=== PATIENT | female | born 1935 | race Caucasian/White ===

== ENCOUNTER 2018-03-26 10:21 | Outpatient (REF) | payer MEDICARE, SELFPAY ==
[2018-03-26 21:50] LABS: BUN 31 mg/dL (7-18); CREATININE 0.95 mg/dL (0.55-1.02); Calcium 9.7 mg/dL (8.5-10.1); Chloride 98 mmol/L (98-107); Estimated GFR 56.32 (mL/min/1.73m2); Glucose 122 mg/dL (70-100); Potassium 4.1 mmol/L (3.5-5.1); Sodium 138 mmol/L (136-145)
== END 2018-03-26 10:41 ==
LOC: NCHCN 10:21
PROVIDERS: PCP Nurse Practitioner Family; Visit Provider Nurse Practitioner Family
DX: E11.9 Type 2 diabetes mellitus without complications (principal); I10 Essential (primary) hypertension
CPT/HCPCS: 80048

== ENCOUNTER 2019-02-03 11:24 | Outpatient (REF) | payer MEDICARE, SELFPAY ==
--- NOTE | 2019-02-03 10:15 | SKI_PTH ---
PATIENT: Anaid Singh LOC: [facility] U#:[id number] AGE/SX: 83/F ROOM: RE02/03/[address]: Renata Corral : 1935 BED: DIS: 02/03/2019 SPEC #: [id number] RECD: 02/04/19 12:28 STATUS: PÉREZ REMamta #: [id number] VINNIE: 02/03/19 10:[address]: Renata De León DEPT: Surgical Specimen RECD BY: Concepcion Pratt ENTERED: 02/04/19 12:28 SP TYPE: GREGORY KEARNS DR: Rufina Martínez Tissues: 1 - SKIN BIOPSY(SHAVE/PUNCH) Procedures: SKIN LEVEL 4 Comments: [id number]
== END 2019-02-03 11:44 ==
LOC: NCHCN 11:24
PROVIDERS: PCP Nurse Practitioner Family; Visit Provider Nurse Practitioner Family
DX: C44.42 Squamous cell carcinoma of skin of scalp and neck (principal)
CPT/HCPCS: 88305

== ENCOUNTER 2019-03-22 12:54 | Outpatient (REF) | payer MEDICARE, SELFPAY ==
[2019-03-22 21:07] LABS: HCT 44.1 % (36.0-46.0); HGB 14.6 g/dL (12.0-15.5); Mean Corp. HGB Concentration 33.1 g/dL (32.0-36.0); Mean Corpuscular Hemoglobin 30.3 pg (27.0-33.0); Mean Corpuscular Volume 91.5 fL (80-95); Mean Platelet Volume 10.9 fL (8.0-11.0); Platelet Count 358 x1000/uL (130-400); RBC 4.82 m/cumm (4.00-5.20); RBC Distribution Width 13.4 % (11.7-14.6); White Blood Cell Count 10.19 k/cumm (4.4-10.8)
[2019-03-22 21:11] LABS: Anion Gap 9.9 mmol/L (3-11); BUN 28 mg/dL (7-18); CO2 30.1 mmol/L (21.0-32.0); Chloride 100 mmol/L (98-107); Estimated GFR 52.95 (mL/min/1.73m2); Glucose 93 mg/dL (74-106); Potassium 4.2 mmol/L (3.5-5.1); Sodium 140 mmol/L (136-145)
== END 2019-03-22 13:14 ==
LOC: NCHCN 12:54
PROVIDERS: PCP Internal Medicine Infectious Disease; Visit Provider Nurse Practitioner Family
DX: E11.9 Type 2 diabetes mellitus without complications (principal); I10 Essential (primary) hypertension; N18.9 Chronic kidney disease, unspecified; Z79.1 Long term (current) use of non-steroidal anti-inflammatories (NSAID)
CPT/HCPCS: 80048; 85027

== ENCOUNTER 2020-04-03 08:58 | Outpatient (REF) | payer MEDICARE, SELFPAY ==
[2020-04-03 21:40] LABS: Anion Gap 8.3 mmol/L (3-11); BUN 31 mg/dL (7-18); CO2 30.7 mmol/L (21.0-32.0); CREATININE 1.03 mg/dL (0.55-1.02); Calcium 9.2 mg/dL (8.5-10.1); Calculated LDL 174 mg/dL (<100); Chloride 100 mmol/L (98-107); Cholesterol 256 mg/dL (<200); Estimated GFR 51.05 (mL/min/1.73m2); Glucose 101 mg/dL (74-106); HDL Cholesterol 51 mg/dL (40-60); Potassium 4.1 mmol/L (3.5-5.1); Sodium 139 mmol/L (136-145); Triglyceride 157 mg/dL (<150)
[2020-04-03 21:54] LABS: Hemoglobin A1C 5.6 % (<5.7)
== END 2020-04-03 09:18 ==
LOC: NCHCN 08:58
PROVIDERS: PCP Internal Medicine Infectious Disease; Visit Provider Nurse Practitioner Family
DX: E11.9 Type 2 diabetes mellitus without complications (principal); I10 Essential (primary) hypertension; E78.5 Hyperlipidemia, unspecified
CPT/HCPCS: 80048; 80061; 83036

== ENCOUNTER 2020-09-10 13:02 | Outpatient (REF) | payer MEDICARE, SELFPAY ==
[2020-09-10 20:57] LABS: Abs Immature Grans 0.07 10^3/uL (0.0-0.06); Absolute Basophil Count 0.07 10^3/uL (0.0-0.2); Absolute Eosinophil Count 0.16 10^3/uL (0.0-0.7); Absolute Lymphocyte Count 2.39 10^3/uL (1.2-3.4); Absolute Neutrophil Count 5.22 10^3/uL (1.2-6.7); Basophils % 0.8; Eosinophils % 1.8; HCT 44.1 % (36.0-46.0); HGB 14.3 g/dL (11.2-15.7); Immature Grans % 0.8; Lymphocytes % 27.4; MCHC 32.4 % (32.0-36.0); MCV 92.6 fL (80-95); Monocytes % 9.2; Nucleated RBC 0 %; Platelet Count 299 10^3/uL (130-400); RBC 4.76 10^6/uL (3.93-5.22); RDW 12.5 % (11.7-14.6); WBC 8.71 10^3/uL (4.4-10.8)
[2020-09-10 21:16] LABS: ALT 27 U/L (14-59); AST 19 U/L (15-37); Albumin 3.8 g/dL (3.4-5.0); Alkaline Phosphatase 69 U/L (46-116); Anion Gap 8.7 mmol/L (3-11); BUN 29 mg/dL (7-18); Bilirubin, Total 0.4 mg/dL (0.2-1.0); CO2 29.3 mmol/L (21.0-32.0); CREATININE 0.9 mg/dL (0.55-1.02); Calcium 9.4 mg/dL (8.5-10.1); Chloride 104 mmol/L (98-107); Estimated GFR 59.51 (mL/min/1.73m2); Glucose 91 mg/dL (74-106); Potassium 4.2 mmol/L (3.5-5.1); Sodium 142 mmol/L (136-145); TSH 1.11 uIU/mL (0.36-3.74)
[2020-09-10 21:18] LABS: Hemoglobin A1C 5.6 % (<5.7)
== END 2020-09-10 13:03 | disposition home or self-care (01) ==
LOC: NCHCN 13:02
PROVIDERS: PCP Internal Medicine Infectious Disease; Visit Provider Nurse Practitioner Family
DX: I10 Essential (primary) hypertension (principal); E11.9 Type 2 diabetes mellitus without complications; R55 Syncope and collapse
CPT/HCPCS: 80053; 83036; 84443; 85025

== ENCOUNTER 2021-03-11 18:44 | Outpatient (REF) | payer MEDICARE, SELFPAY ==
[2021-03-11 22:27] LABS: COMMENT (LAB VIEW ONLY) 84.99 mg/dL
== END 2021-03-11 18:45 | disposition home or self-care (01) ==
LOC: NCHCN 18:44
PROVIDERS: PCP Internal Medicine Infectious Disease; Visit Provider Nurse Practitioner Family
DX: E11.9 Type 2 diabetes mellitus without complications (principal); I10 Essential (primary) hypertension; N18.9 Chronic kidney disease, unspecified
CPT/HCPCS: 82043; 82570

== ENCOUNTER 2021-09-02 18:01 | Outpatient (REF) | payer MEDICARE, SELFPAY ==
[2021-09-02 16:16] LABS: Anion Gap 7.3 mmol/L (3-11); BUN 30 mg/dL (7-18); CO2 27.7 mmol/L (21.0-32.0); CREATININE 0.9 mg/dL (0.55-1.02); Calcium 9.2 mg/dL (8.5-10.1); Chloride 108 mmol/L (98-107); Estimated GFR 59.37 (mL/min/1.73m2); Glucose 103 mg/dL (74-106); Potassium 4.9 mmol/L (3.5-5.1); Sodium 143 mmol/L (136-145)
[2021-09-02 16:20] LABS: Hemoglobin A1C 6.3 % (<5.7)
== END 2021-09-02 18:02 | disposition home or self-care (01) ==
LOC: NCHCN 18:01
PROVIDERS: PCP Internal Medicine Infectious Disease; Visit Provider Nurse Practitioner Family
DX: E11.9 Type 2 diabetes mellitus without complications (principal); N18.9 Chronic kidney disease, unspecified
CPT/HCPCS: 80048; 83036

== ENCOUNTER 2022-03-17 10:58 | Outpatient (REF) | payer MEDICARE, SELFPAY ==
[2022-03-17 15:05] LABS: HCT 42.2 % (36.0-46.0); HGB 13.7 g/dL (11.2-15.7); MCH 30.2 pg (27.0-33.0); MCHC 32.5 % (32.0-36.0); MCV 93 fL (80-95); MPV 10.7 fL (8.0-11.0); Platelet Count 290 10^3/uL (130-400); RBC 4.53 10^6/uL (3.93-5.22); RDW 13.4 % (11.7-14.6); RDW-SD 45.8 fL; WBC 8.52 10^3/uL (4.4-10.8)
[2022-03-17 15:27] LABS: Anion Gap 5.4 mmol/L (3-11); BUN 30 mg/dL (7-18); CO2 29.6 mmol/L (21.0-32.0); CREATININE 1.1 mg/dL (0.55-1.02); Calcium 9.5 mg/dL (8.5-10.1); Chloride 103 mmol/L (98-107); Estimated GFR 48.94 (mL/min/1.73m2); Glucose 91 mg/dL (74-106); Potassium 4.9 mmol/L (3.5-5.1); Sodium 138 mmol/L (136-145)
== END 2022-03-17 10:59 | disposition home or self-care (01) ==
LOC: NCHCN 10:58
PROVIDERS: PCP Internal Medicine Infectious Disease; Visit Provider Nurse Practitioner Family
DX: E11.9 Type 2 diabetes mellitus without complications (principal); M85.88 Other specified disorders of bone density and structure, other site
CPT/HCPCS: 80048; 85027

== ENCOUNTER 2023-02-02 13:05 | Outpatient (REF) | payer MEDICARE, SELFPAY ==
[2023-02-02 14:53] LABS: HCT 43.2 % (36.0-46.0); HGB 13.9 g/dL (11.2-15.7); MCH 30.3 pg (27.0-33.0); MCHC 32.2 % (32.0-36.0); MCV 94 fL (80-95); Platelet Count 283 10^3/uL (130-400); RBC 4.58 10^6/uL (3.93-5.22); RDW 12.6 % (11.7-14.6); RDW-SD 43.8 fL; WBC 8.01 10^3/uL (4.4-10.8)
[2023-02-02 15:08] LABS: Anion Gap 6.5 mmol/L (3-11); BUN 32 mg/dL (7-18); CO2 29.5 mmol/L (21.0-32.0); CREATININE 1.1 mg/dL (0.55-1.02); Calcium 9.7 mg/dL (8.5-10.1); Chloride 103 mmol/L (98-107); Estimated GFR 48.63 (mL/min/1.73m2); Glucose 143 mg/dL (74-106); Potassium 4.5 mmol/L (3.5-5.1); Sodium 139 mmol/L (136-145)
[2023-02-02 15:20] LABS: Hemoglobin A1C 6.1 % (<5.7)
== END 2023-02-02 13:06 | disposition home or self-care (01) ==
LOC: NCHCN 13:05
PROVIDERS: PCP Internal Medicine Infectious Disease; Visit Provider Nurse Practitioner Family
DX: E11.9 Type 2 diabetes mellitus without complications (principal); N18.9 Chronic kidney disease, unspecified
CPT/HCPCS: 80048; 85027; 83036

== ENCOUNTER 2023-02-09 20:53 | Outpatient (REF) | payer MEDICARE, SELFPAY ==
[2023-02-09 18:17] LABS: COMMENT (LAB VIEW ONLY) 107.05 mg/dL; Microalb ug/mg Crea 18.3 ug/mg Cr
== END 2023-02-09 20:54 | disposition home or self-care (01) ==
LOC: NCHCN 20:53
PROVIDERS: PCP Internal Medicine Infectious Disease; Visit Provider Nurse Practitioner Family
DX: E11.9 Type 2 diabetes mellitus without complications (principal)
CPT/HCPCS: 82043; 82570